=== PATIENT | female | born 1970 | race Two or more races ===

== ENCOUNTER 2019-06-28 07:46 | Outpatient (CLI) | payer OTHER | END 2019-06-28 08:01 | disposition home or self-care (01) | LOC: RAD 07:46 | DX: R10.84 Generalized abdominal pain (principal) ==

== ENCOUNTER 2019-07-23 08:51 | Outpatient (CLI) | payer OTHER | END 2019-07-23 09:05 | disposition home or self-care (01) | LOC: RX STUDY 08:51 | DX: R10.84 Generalized abdominal pain (principal) ==